=== PATIENT | male | born 1995 | race Hispanic/Latino ===

== ENCOUNTER 2018-07-06 20:22 | Emergency (ER) | payer OTHER ==
[2018-07-06 20:33] VITALS: RESP 16; O2SAT 100
--- NOTE | 2018-07-06 21:18 | ED PDOC ---
HPI: Chest Pain Time Seen by Provider: 07/06/18 20:53 Chief Complaint (Nursing): Chest Pain Chief Complaint (Provider): chest pain History Per: Patient History/Exam Limitations: no limitations Onset/Duration Of Symptoms: Days (3), Waxing/Waning Current Symptoms Are (Timing): Still Present Additional Complaint(s): 22 y/o male presents for evaluation of intermittent chest pressure x 3 days. Patient states two weeks ago he was seen at [facility] for testicular pain and told he could possibly have a malignant lesion on his testicles; which turned out to be benign after speaking with Urologist. Patient states his blood pressure at that time was elevated and since then he admits to feeling stressed due to that ultrasound finding and also due to private home issues, but denies SI/HI. Patient states chest pain worsened today, so he went to [facility] and his BP was elevated in 180's/90's and was sent to ED for further evaluation. + recent travel to [place] last week. Denies fever, cough, congestion, vomiting, shortness of breath, palpitations, leg pain/swelling, recent drug use. Past Medical History Reviewed: Historical Data, Nursing Documentation, Vital Signs Vital Signs: Last Vital Signs Temp 98.2 F 07/06/18 20:30 Pulse 87 07/06/18 20:30 Resp 16 07/06/18 20:30 BP 157/95 H 07/06/18 20:30 Pulse Ox 100 07/06/18 21:19 - Medical History PMH: No Chronic Diseases - Surgical History Surgical History: No Surg Hx - Family History Family History: States: No Known Family Hx - Living Arrangements Living Arrangements: Alone - Social History Current smoker - smoking cessation education provided: No Alcohol: Social Drugs: Cannabis - Allergies Allergies/Adverse Reactions: Allergies Allergy/AdvReac Type Severity Reaction Status Date / Time No Known Allergies Allergy Verified 07/06/18 20:29 Review of Systems ROS Statement: Except As Marked, All Systems Reviewed And Found Negative Cardiovascular: Positive for: Chest Pain Physical Exam - Reviewed Nursing Documentation Reviewed: Yes Vital Signs Reviewed: Yes - Physical Exam Appears: Positive for: Well, Non-toxic, No Acute Distress Head Exam: Positive for: ATRAUMATIC, NORMAL INSPECTION, NORMOCEPHALIC Skin: Positive for: Normal Color Eye Exam: Positive for: Normal appearance ENT: Positive for: Normal ENT Inspection Cardiovascular/Chest: Positive for: Regular Rate, Rhythm Respiratory: Positive for: Normal Breath Sounds Gastrointestinal/Abdominal: Positive for: Normal Exam Back: Positive for: Normal Inspection Extremity: Positive for: Normal ROM Neurologic/Psych: Positive for: Alert, Oriented (x3) - Laboratory Results Result Diagrams: 07/06/18 22:08 07/06/18 22:08 - ECG ECG: Positive for: Viewed By Me (reviewed by ED attending) ECG Rhythm: Positive for: Sinus Rhythm O2 Sat by Pulse Oximetry: 100 - Progress ED Course And Treament: labs, ekg, CTA chest EXAM: CT Angiography Chest With Intravenous Contrast EXAM DATE/TIME: 07/06/2018 9:16 PM CLINICAL HISTORY: 22 years old, male; Signs and symptoms; Shortness of breath; Additional info: Chest pain, SOB TECHNIQUE: Axial computed tomographic angiography images of the chest with intravenous contrast using CT angiography protocol. All CT scans at this facility use at least one of these dose optimization techniques: automated exposure control; mA and/or kV adjustment per patient size (includes targeted exams where dose is matched to clinical indication); or iterative reconstruction. Coronal and sagittal reformatted images were created and reviewed. MIP reconstructed images were created and reviewed. CONTRAST: 95 ml of [id number] administered intravenously. COMPARISON: No relevant prior studies available. FINDINGS: Pulmonary arteries: Somewhat limited by suboptimal enhancement. No pulmonary emboli. Aorta: Normal. No aortic aneurysm. No aortic dissection. Lungs: Normal. No consolidation. No masses. Pleural space: Normal. No pneumothorax. No pleural effusion. Heart: Normal. No cardiomegaly. No pericardial effusion. Bones/joints: Unremarkable. No acute fracture. Soft tissues: Unremarkable. Lymph nodes: Unremarkable. No enlarged lymph nodes. IMPRESSION: No acute findings. No pulmonary embolism. Patient educated on findings, discharged with instructions to follow up PMD 2-3 days Advised lifestyle modification Return precautions given Patient demonstrates full understanding of discharge instructions Patient requires no further intervention in the ED and is stable for discharge at this time Disposition - Clinical Impression Clinical Impression: Atypical chest pain, Hypertension - Patient ED Disposition Is Patient to be Admitted: No Counseled Patient/Family Regarding: Studies Performed, Diagnosis, Need For Followup - Disposition Disposition: Routine/Home Disposition Time: 23:53 Condition: STABLE Instructions: Controlling Your Blood Pressure Through Lifestyle, Chest Pain Forms: [facility] [place] ([place])
[2018-07-06 22:13] LABS: BASO % 0.4 % (0.0-2.0); EOS # 0.1 K/uL (0.0-0.7); EOS % 0.7 % (0.0-4.0); HEMOGLOBIN 15.6 g/dL (12.0-18.0); LYMPH # 1.9 K/uL (1.0-4.3); LYMPH % 20.7 % (20.0-40.0); MEAN CELL VOLUME 90.4 fl (80.0-94.0); MEAN CORPUSCULAR HEMOGLOBIN 31.3 pg (27.0-31.0); MEAN CORPUSCULAR HGB CONC 34.6 g/dL (33.0-37.0); MEAN PLATELET VOLUME 8.8 fl (7.2-11.7); MONO # 0.7 K/uL (0.0-0.8); MONO % 7.5 % (0.0-10.0); NEUT # 6.6 K/uL (1.8-7.0); NEUT % 70.7 % (50.0-75.0); RED CELL DISTRIBUTION WIDTH 13.3 % (11.5-14.5); WHITE BLOOD COUNT 9.4 K/uL (4.8-10.8)
[2018-07-06 22:17] LABS: PROTHROMBIN TIME 10.8 Seconds (9.8-13.1)
[2018-07-06 22:20] LABS: PARTIAL THROMBOPLASTIN TIME 31.3 Seconds (25.6-37.1)
[2018-07-06 22:23] LABS: ALB/GLOB RATIO 1.6 (1.0-2.1); ALBUMIN 4.6 g/dL (3.5-5.0); ALT/SGPT 44 U/L (21-72); AST/SGOT 36 U/L (17-59); BLOOD UREA NITROGEN 10 mg/dl (9-20); GFR NON-AFRICAN AMERICAN > 60
[2018-07-06] MEDS ORDERED: Iodixanol 320 MG/ML 100 ML BOTTLE IV ONE (22:58)
[2018-07-06] MEDS ORDERED: Sodium Chloride 0.9% 50 ML IV ONE (22:59)
[2018-07-07 00:06] VITALS: BP 179/85; PULSE 81; TEMP 98.8
--- NOTE | 2018-07-07 11:06 | CT ---
Date of service: 07/06/2018 PROCEDURE: CT Chest with contrast (Pulmonary Angiogram) HISTORY: chest pain, SOB COMPARISON: None available. TECHNIQUE: Axial computed tomography images were obtained of the chest in the pulmonary arterial phase of enhancement. Coronal and sagittal reformatted images were created and reviewed. Maximum intensity projection (MIP) reconstructed images in the following planes: Axial only. Intravenous contrast dose: 95 cc Visipaque [id number] Mean Hounsfield unit values in the main pulmonary artery: 197.81 Radiation dose: Total exam DLP = mGy-cm. This CT exam was performed using one or more of the following dose reduction techniques: Automated exposure control, adjustment of the mA and/or kV according to patient size, and/or use of iterative reconstruction technique. FINDINGS: PULMONARY ARTERIES: Unremarkable. No pulmonary embolism. AORTA: No acute findings. No thoracic aortic aneurysm. LUNGS: Unremarkable. No nodule, mass or pulmonary consolidation. PLEURAL SPACES: Unremarkable. No effusion or pneumothorax. HEART: Unremarkable. No cardiomegaly. No significant pericardial effusion. LYMPH NODES: No lymphadenopathy. BONES, CHEST WALL: Unremarkable. No fracture or destructive lesion OTHER FINDINGS: Unremarkable. IMPRESSION: Unremarkable CT pulmonary angiogram. No pulmonary embolus. Limitations of the current examination: Suboptimal opacification the pulmonary artery is both qualitatively and quantitatively based on Hounsfield unit values in the main pulmonary artery. Concordant results (preliminary interpretation) provided by [employer]. Procedure Completed: 23:16. Preliminary ([facility]) Report: Dictated and Authenticated: 23:31. Final Interpretation: 11:04. July 07, 2018.
== END 2018-07-07 00:06 | disposition home or self-care (01) ==
LOC: H.ER 20:22
DX: R07.9 Chest pain, unspecified (principal); I10 Essential (primary) hypertension
CPT/HCPCS: 71275; 80053; 84484; 85025; 85610; 85730; 99284; Q9967